=== PATIENT | male | born 1945 | race Caucasian/White ===

== ENCOUNTER 2019-03-20 13:09 | Outpatient (CLI) | payer MEDICARE, OTHER ==
--- NOTE | 2019-03-22 00:13 | CT Report ---
Reason: TIA Procedure Date: 03/20/2019 Accession Number: [id number] / [id number] Procedure: CT - HEAD WO CPT Code: FULL RESULT: EXAM: CT HEAD EXAM DATE: 03/20/2019 02:17 PM. CLINICAL HISTORY: Transient ischemic attack COMPARISON: HEAD 07/16/2006 7:20 PM. TECHNIQUE: Multiaxial CT images were obtained from the foramen magnum to the vertex. Reformats: Sagittal and coronal. IV contrast: None. In accordance with CT protocol optimization, one or more of the following dose reduction techniques were utilized for this exam: automated exposure control, adjustment of mA and/or KV based on patient size, or use of iterative reconstructive technique. FINDINGS: Parenchyma: Areas of encephalomalacia in the bilateral parieto-occipital lobes, left greater than right, compatible sequela of remote infarcts. New heterogeneous hyperattenuating right occipital mass measuring approximately 4.4 x 3.6 x 3.8 cm (01/24, 05/08). Interval progression of moderate patchy white matter hypoattenuation, compatible with chronic small vessel ischemic change. Extraaxial Spaces: Normal for age. No subdural or epidural collections identified. Ventricles: The ventricles and basal cisterns are patent. Mass-effect on the occipital horn of the right lateral ventricle. No hydrocephalus or midline shift. Sinuses and Orbits: Imaged paranasal sinuses, orbits, and mastoids show no significant abnormality. Bones: No evidence of fracture or calvarial defect. Other: None. IMPRESSION: 1. New heterogeneous hyperattenuating right occipital mass with mass-effect on the occipital horn of the right lateral ventricle. Recommend further evaluation with contrast-enhanced MRI. 2. Areas of encephalomalacia in the bilateral parieto-occipital lobes, left greater than right, compatible sequela of remote infarcts. 3. Interval progression of moderate chronic microvascular angiopathy. RADIA The critical result notification system was initiated by Dr. Susan Keita at 11:51 PM on 03/21/2019. The above critical result findings were discussed with Dr. Roman by Dr. Susan Keita at 12:02 AM on 03/22/2019.
--- NOTE | 2019-03-23 12:53 | Ultrasound Report ---
Reason: TIA Procedure Date: 03/20/2019 Accession Number: [id number] / [id number] Procedure: US - Carotid Doppler Complete CPT Code: FULL RESULT: EXAM: BILATERAL CAROTID AND VERTEBRAL ARTERY DUPLEX DOPPLER ULTRASOUND: EXAM DATE: 03/20/2019 01:41 PM CLINICAL HISTORY: TIA 2 weeks ago with lingering symptoms. COMPARISON: None. TECHNIQUE: Grayscale imaging, color Doppler, and duplex spectral Doppler were used to evaluate the carotid and vertebral arteries bilaterally. Static images were obtained. FINDINGS: No significant plaque is identified in the right or left common or internal carotid arteries. Normal antegrade flow is present in bilateral vertebral arteries. VELOCITIES (cm/sec): Right CCA mid: PSV 60 cm/sec CCA dist: PSV 64 cm/sec ICA prox: PSV 45 cm/sec, EDV 15 cm/sec ICA mid: PSV 69 cm/sec, EDV 23 cm/sec ICA dist: PSV 69 cm/sec, EDV 22 cm/sec ECA: PSV 57 cm/sec Vert: PSV 29 cm/sec ICA/CCA: 1.1 Left CCA mid: PSV 64 cm/sec CCA dist: PSV 60 cm/sec ICA prox: PSV 31 cm/sec, EDV 9 cm/sec ICA mid: PSV 41 cm/sec, EDV 15 cm/sec ICA dist: PSV 52 cm/sec, EDV 20 cm/sec ECA: PSV 55 cm/sec Vert: PSV 28 cm/sec ICA/CCA: 0.9 ICA diameter stenosis: Right: <50% by velocity and <70% by NASCET criteria. Left: <50% by velocity and <70% by NASCET criteria. Other: Incidentally noted hypoechoic solid right thyroid nodule with lobular margins. IMPRESSION: 1. No significant bilateral carotid artery plaquing. 2. In the right carotid artery there are no elevated carotid artery velocities to suggest hemodynamically significant stenosis. 3. In the left carotid artery there are no elevated carotid artery velocities to suggest hemodynamically significant stenosis. 4. Normal antegrade flow is present in bilateral vertebral arteries. 5. Incidentally noted right thyroid nodule. Recommend further evaluation with thyroid ultrasound. General Recommendations: Stenosis =50% ICA - Follow-up ultrasound 6-12 months Stenosis <50% ICA - High Risk Patient with plaque - Follow-up ultrasound 1-2 years Normal Study but High Risk Patient - Follow-up ultrasound 3-5 years Management recommendations and diagnostic criteria are based on current IAC endorsed standards in Carotid Artery Stenosis: Grayscale and Doppler Ultrasound Diagnosis. Validated velocity measurements with angiographic measurements and velocity criteria are extrapolated from diameter data as defined by the Society of Radiologists in Ultrasound Consensus Conference Radiology 2003; 229;340-346. RADIA
== END 2019-03-20 13:10 | disposition home or self-care (01) ==
LOC: DI 13:09
PROVIDERS: ATTEND Internal Medicine
DX: G45.9 Transient cerebral ischemic attack, unspecified (principal); R93.89 Abnormal findings on diagnostic imaging of other specified body structures; G93.89 Other specified disorders of brain; I67.9 Cerebrovascular disease, unspecified
CPT/HCPCS: 70450; 93880

== ENCOUNTER 2019-03-27 15:41 | Outpatient (CLI) | payer MEDICARE, OTHER ==
[2019-03-27] MEDS ORDERED: GADOBUTROL 7.5 MMOL/7.5 ML VIAL ONE (16:32)
[2019-03-27] MEDS ORDERED: GADOBUTROL 7.5 MMOL/7.5 ML VIAL IVP ONE (16:35)
--- NOTE | 2019-03-27 17:38 | MRI Report ---
Reason: CEREBRAL MASS Procedure Date: 03/27/2019 Accession Number: [id number] / [id number] Procedure: MRI - Brain W/WO CPT Code: FULL RESULT: EXAM: MRI BRAIN WITHOUT AND WITH CONTRAST EXAM DATE: 03/27/2019 04:45 PM. CLINICAL HISTORY: 73-year-old male. CEREBRAL MASS. COMPARISON: CT head 03/20/2019, MR brain 11/23/2005 TECHNIQUE: Multiplanar, multisequence T1-weighted and fluid-sensitive MR sequences of the brain were performed. Sequences optimized for routine evaluation. Other: None. IV Contrast: 7 ML Gadavist FINDINGS: Parenchyma: No evidence of acute or subacute infarct. As evidenced on the prior CT, there is a heterogeneous right occipital region mass adherent to the dura, with maximal transverse dimensions 4.6 x 4.0 cm and 4.0 cm craniocaudally. Intralesional foci of susceptibility artifact (series 701 image 12) may represent calcifications. The mass demonstrates restricted diffusion compatible with high cellularity. While not very well established, overall there are features suggestive of extra-axial location such as compression of the surrounding parenchyma and partial visualization of CSF cleft. Therefore, the mass may represent extra-axial lesion such as meningioma. There is moderate surrounding parenchymal FLAIR signal normality, which likely represents edema. Extensive, semi-confluent T2/FLAIR hyperintense periventricular, deep, and subcortical white matter lesions within cerebral hemispheres bilaterally. Bilateral parieto-occipital cystic encephalomalacia and surrounding gliosis, sequela of remote infarction. Ventricles/Cisterns: Stable size and configuration of the ventricles. Orbits: Symmetric and unremarkable. Sella Turcica: The pituitary gland, cavernous sinuses, suprasellar cistern and optic chiasm are unremarkable. IAC: Symmetric and unremarkable. Vasculature: Normal signal flow void is seen in the major arterial structures at the skull base. The dural sinuses are patent and enhance normally. Sinuses: No acute sinus disease. Bones: No focal pathologic appearing marrow signal changes. Other: None. IMPRESSION: 1. As evidenced on the prior CT, there is a heterogeneous right occipital region mass that appears adherent to the dura, with maximal transverse dimensions 4.6 x 4.0 cm and 4.0 cm craniocaudally. While not very well established, overall there are features suggestive of extra-axial location such as compression of the surrounding parenchyma and partial visualization of CSF cleft. Therefore, the mass is favored to represent extra-axial lesion such as meningioma. 2. Moderate surrounding parenchymal FLAIR signal normality, which likely represents edema. 3. Extensive, semi-confluent T2/FLAIR hyperintense periventricular, deep, and subcortical white matter lesions within cerebral hemispheres bilaterally. While nonspecific, these are favored to represent sequela of chronic microangiopathy. 4. Bilateral parieto-occipital cystic encephalomalacia and surrounding gliosis, sequela of remote infarction. 5. No evidence of acute or subacute infarct. No acute intracranial hemorrhage. RADIA
== END 2019-03-27 15:42 | disposition home or self-care (01) ==
LOC: DI 15:41
PROVIDERS: ATTEND Family Medicine
DX: R90.0 Intracranial space-occupying lesion found on diagnostic imaging of central nervous system (principal)
CPT/HCPCS: 70553; A9585

== ENCOUNTER 2019-03-28 12:40 | Outpatient (CLI) | payer MEDICARE, OTHER ==
--- NOTE | 2019-03-28 14:07 | Ultrasound Report ---
Reason: THYROID NODULE Procedure Date: 03/28/2019 Accession Number: [id number] / [id number] Procedure: US - Head or Neck Soft Tissue CPT Code: FULL RESULT: EXAM: THYROID ULTRASOUND EXAM DATE: 03/28/2019 12:56 PM. CLINICAL HISTORY: THYROID NODULE. COMPARISON: None. TECHNIQUE: Real time sonographic imaging of the thyroid was performed by the substation designer. Multiple client services representative static images were saved for review. FINDINGS: THYROID GLAND: Right Lobe: 5.4 x 1.8 x 2.5 cm, volume 12.7 cc. Normal background echotexture. Right Lobe Nodules: A mildly lobulated solid-appearing iso-to hypoechoic lesion with minimal vascularity and central echogenic tissue seen in the right thyroid lobe, measuring 1.3 x 0.7 x 1 cm. Nodule is taller than wider. Left Lobe: 4.6 x 1.6 x 1.2 cm, volume 4.6 cc. Normal background echotexture. Left Lobe Nodules: None. Isthmus: 0.45 cm AP. Isthmic Nodules: None. LYMPH NODES: No adenopathy demonstrated in the central or lateral compartment. OTHER: None. IMPRESSION: Mildly lobulated solid-appearing iso-to hyperechoic lesion in right thyroid lobe. Overall nodule has intermediate suspicion pattern. Recommended further correlation with fine-needle aspiration. Management recommendations are based on 2015 [place] [employer] Management Guidelines for Adult Patients with Thyroid Nodules and Differentiated Thyroid Cancer. RADIA
== END 2019-03-28 12:41 | disposition home or self-care (01) ==
LOC: DI 12:40
PROVIDERS: ATTEND Internal Medicine
DX: E04.1 Nontoxic single thyroid nodule (principal)
CPT/HCPCS: 76536

== ENCOUNTER 2019-05-27 08:42 | Emergency (ER) | payer MEDICARE, OTHER ==
--- NOTE | 2019-05-27 08:58 | ED Physician Documentation ---
PD HPI FOCAL NEURO - Stated complaint Stated Complaint: WEAKNESS/UNABLE TO WALK - History obtained from History obtained from: Patient, Family - History of Present Illness Timing - onset: Yesterday (evening time, had onset of Decreased vision and feeling of loss of lateral vision garcia as well as significant ataxia and difficulty walking. His daughter also noticed him to have a nystagmus of both eyes. The symptoms were abrupt in onset and have continued overnight into today. 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 Subsequent to that he has had some general weakness. The tumor itself even before surgery had caused some visual field defect and blurred vision. However the patient states this is significantly worse since last evening. He has had some headache as well. There is no injury or fall reported.) Timing - duration: Hours (14) Timing - details: Abrupt onset, Still present Severity of deficit: Moderate Weakness: No: Face, Hand, Leg Numbness: No: Face, Hand, Leg Associated symptoms: Headache, Other (nystagmus and ataxia). No: Nausea / vomiting, Fall, Head injury Baseline status: positive: Walker. negative: Mildly confused Similar symptoms before: Has not had sx before (The symptoms are abruptly new for him. He has had some visual problems related to an surgery.) Recently seen: Surgery (He had brain surgery at the [facility] in end of March for presumed brain metastasis. He had a debulking surgery of that area. The daughter reports they did find other small lesions presumed metastatic and further work-up found a lung source. He has met with the oncologist at the [facility] through the . The patient is still deciding on chemotherapy and further treatments. They have another appointment next week.) Review of Systems Constitutional: denies: Fever, Myalgias Eyes: reports: Decreased vision. denies: Photophobia, Irritation Nose: denies: Rhinorrhea / runny nose, Congestion Throat: denies: Sore throat Cardiac: denies: Chest pain / pressure, Palpitations Respiratory: denies: Dyspnea, Cough GI: reports: Nausea. denies: Abdominal Pain, Vomiting, Diarrhea : denies: Dysuria, Frequency Skin: denies: Abrasion (s), Laceration (s) Musculoskeletal: reports: Neck pain, Extremity pain (pain to right shoulder since yesterday). denies: Back pain Neurologic: reports: Headache (posterior), Other (severe ataxia and unable to walk without assistance just since last evening.). 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 ) Endocrine/Autoimmune: None - Present Medications Home Medications: Ambulatory Orders Medication Instructions Recorded Confirmed Lisinopril [Prinivil] 0 mg PO 05/27/19 Rivaroxaban [Xarelto] 0 mg PO 05/27/19 Rosuvastatin Calcium [Crestor] 0 mg PO 05/27/19 - Allergies Allergies/Adverse Reactions: Allergies Allergy/AdvReac Type Severity Reaction Status Date / Time No Known Drug Allergies Allergy Verified 05/27/19 09:23 PD ED PE NORMAL - Vitals Vital signs reviewed: Yes - General General: Alert and oriented X 3, Well developed/nourished, Other (answers questions clearly. ) - HEENT HEENT: Atraumatic (Well-healing surgical scar on the right parietal area.), PERRL, EOMI (with nystagmus noted horizontally, even without head movement. ), Pharynx benign - Neck Neck: Supple, no meningeal sign, No adenopathy, No JVD - Cardiac Cardiac: RRR, No murmur - Respiratory Respiratory: Clear bilaterally - Abdomen Abdomen: Soft, Non tender - Male Male : Deferred - Rectal Rectal: Deferred - Back Back: No CVA TTP - Derm Derm: Normal color, Warm and dry - Extremities Extremities: No deformity, No tenderness to palpate, Normal ROM s pain, No edema, No calf tenderness / cord - Neuro Neuro: Alert and oriented X 3, No motor deficit, No sensory deficit, Normal speech NIHSS - Level of Consciousness Level of consciousness: (0) Alert, Keenly responsive LOC Questions: (0) Answers both Q's correct LOC Commands: (0) Performs both correctly - Gaze Best Gaze: (0) Normal - Visual Visual: (3) Bilateral Hemianopia - Facial Palsy Facial Palsy: (0) Normal, symmetrical movement - Motor Arms (both separate) Motor Arm (right): (0) No drift Motor Arm (left): (0) No drift - Motor Legs (both separate) Motor Leg (right): (0) No drift Motor Leg (left): (0) No drift - Limb Ataxia Limb Ataxia: (2) Present in 2 limbs - Sensory Sensory: (0) Normal - Best Language Best Language: (0) No aphasia - Dysarthria Dysarthria: (0) Normal - Extinction and Inattention (formally neg Extinction and inattention: (0) No abnormality - Total Score/Results Total Score/Result: 5 Results - Vitals Vitals: Vital Signs - 24 hr 05/27/19 05/27/19 05/27/19 08:46 09:30 09:45 Temperature 36 C L Heart Rate 61 63 65 Respiratory 16 15 17 Rate Blood Pressure 135/82 H 128/87 H 144/82 H O2 Saturation 96 97 100 05/27/19 05/27/19 05/27/19 11:00 11:37 14:10 Temperature 36.7 C 36.7 C Heart Rate 55 L 53 L 56 L Respiratory 18 19 19 Rate Blood Pressure 130/69 122/72 134/79 H O2 Saturation 100 100 98 05/27/19 14:35 Temperature Heart Rate 53 L Respiratory 19 Rate Blood Pressure 136/74 H O2 Saturation 97 Oxygen O2 Source Room air - Labs Labs: Laboratory Tests 05/27/19 05/27/19 05/27/19 09:02 09:02 09:02 WBC 5.7 RBC 3.86 L Hgb 13.5 L Hct 40.0 L MCV 103.6 H MCH 35.0 H MCHC 33.8 RDW 12.2 Plt Count 235 MPV 10.1 Neut # (Auto) 3.8 Lymph # (Auto) 1.1 L Cameron # (Auto) 0.6 Eos # (Auto) 0.2 Baso # (Auto) 0.1 Absolute Nucleated RBC 0.00 Nucleated RBC % 0.0 ESR 15 PT INR APTT Sodium 142 Potassium 3.9 Chloride 107 Carbon Dioxide 24 Anion Gap 11.0 BUN 29 H Creatinine 1.0 Estimated GFR (MDRD) 73 L Glucose 106 H Calcium 8.9 Magnesium 2.7 Total Bilirubin 0.6 AST 24 ALT 13 Alkaline Phosphatase 82 Troponin I Total Protein 7.3 Albumin 3.5 Globulin 3.8 Albumin/Globulin Ratio 0.9 L Lipase 32 05/27/19 05/27/19 09:02 09:02 WBC RBC Hgb Hct MCV MCH MCHC RDW Plt Count MPV Neut # (Auto) Lymph # (Auto) Cameron # (Auto) Eos # (Auto) Baso # (Auto) Absolute Nucleated RBC Nucleated RBC % ESR PT 18.9 H INR 1.7 H APTT 30.1 Sodium Potassium Chloride Carbon Dioxide Anion Gap BUN Creatinine Estimated GFR (MDRD) Glucose Calcium Magnesium Total Bilirubin AST ALT Alkaline Phosphatase Troponin I < 0.04 Total Protein Albumin Globulin Albumin/Globulin Ratio Lipase - Rads (name of study) head CT/angio Radiology: Prelim report reviewed, Discussed with rads (acute hemorrhage left posterior fossa, in area of prior small lesions, most likely met. Prior surgical changes noted right occipital area. ), EMP read contemporaneously, See rad report PD MEDICAL DECISION MAKING - ED course Complexity details: considered differential, d/w patient, d/w family, d/w home sales consultant (Talked initially with the on-call neurosurgery at [facility]. They referred it to neurology and reportedly the case was discussed between neurosurgery neurology and oncology. The neurology attending accepted transfer the patient. He will go by airlift to the emergency room initially for rescanning to look for any interval change in the degree of bleeding. He was then be admitted to the neuro ICU.) ED course: Patient had spontaneous nontraumatic hemorrhage in the area of a brain metastasis in the posterior fossa. It is giving him considerable cerebellar symptoms but no notable brainstem dysfunction with good alertness and normal blood pressure and heart rate. He has normal spontaneous breathing as well. He is on Xarelto blood thinner. He was given tranexamic acid IV as well as some IV pain medications. He is also given Kcentra on a weight-based appropriate dose. The patient remained stable clinically here. I did talk with the neurosurgery and the neurology. He is accepted for transfer there and he is tra nsferred in stable condition. Departure - Departure Disposition: 02 Transfer Acute Care Hosp Clinical Impression: Intracranial hemorrhage, Brain metastases, Ataxia Condition: Serious Discharge Date/Time: 05/27/19 14:36
[2019-05-27] MEDS ORDERED: SODIUM CHLORIDE 0.9% 1,000 ML IV ONE ×2 (09:16→13:55)
[2019-05-27] MEDS ORDERED: diazePAM INJ 5 MG/ML SYRINGE IVP STA (09:17)
[2019-05-27] MEDS ORDERED: DEXAMETHASONE 10 MG/ML VIAL IVP STA (09:17)
[2019-05-27] MEDS ORDERED: MORPHINE 2 MG/ML CARPUJECT IVP STA (09:29)
[2019-05-27 09:30] LABS: BASOPHILS # (AUTO) 0.1 10^3/uL (0.0-0.1); BASOPHILS % (AUTO) 0.9 %; EOSINOPHILS # (AUTO) 0.2 10^3/uL (0.0-0.7); EOSINOPHILS % (AUTO) 2.8 %; HGB - HEMOGLOBIN 13.5 g/dL (14.0-18.0); LYMPHOCYTES # (AUTO) 1.1 10^3/uL (1.5-3.5); LYMPHOCYTES % (AUTO) 19.1 %; MEAN CORPUSCULAR HGB CONC 33.8 g/dL (32.0-36.0); MEAN CORPUSCULAR VOLUME 103.6 fL (80.0-94.0); MEAN PLATELET VOLUME 10.1 fL (7.4-11.4); MONOCYTES # (AUTO) 0.6 10^3/uL (0.0-1.0); MONOCYTES % (AUTO) 10.5 %; NEUTROPHILS # (AUTO) 3.8 10^3/uL (1.5-6.6); NEUTROPHILS % (AUTO) 66.3 %; PLT - PLATELET COUNT 235 10^3/uL (130-450); RED BLOOD COUNT 3.86 10^6/uL (4.70-6.10); RED CELL DISTRIBUTION WIDTH 12.2 % (12.0-15.0); WHITE BLOOD COUNT 5.7 x10^3/uL (4.8-10.8)
[2019-05-27] MEDS ORDERED: IOVERSOL 320 100 ML VIAL IVP ONE ×2 (09:46→14:50)
[2019-05-27 09:53] LABS: ALBUMIN 3.5 g/dL (3.2-5.5); ALBUMIN/GLOBULIN RATIO 0.9 (1.0-2.2); BILIRUBIN,TOTAL 0.6 mg/dL (0.2-1.0); CALCIUM 8.9 mg/dL (8.5-10.3); MAGNESIUM 2.7 mg/dL (1.7-2.8); TOTAL PROTEIN 7.3 g/dL (6.7-8.2)
--- NOTE | 2019-05-27 11:11 | CT Report ---
Reason: L sided facial droop Procedure Date: 05/27/2019 Accession Number: [id number] / [id number] Procedure: CT - ANGIO HEAD W/WO CPT Code: FULL RESULT: EXAM: CT ANGIOGRAM HEAD. CT SCAN OF THE HEAD WITHOUT AND WITH CONTRAST. EXAM DATE: 05/27/2019 10:35 AM CLINICAL HISTORY: Acute onset left-sided facial droop COMPARISON: HEAD W/O 03/20/2019 2:14 PM BRAIN W/WO 03/27/2019 4:16 PM. TECHNIQUE: - CT Scan Head: Using a multidetector scanner, axial images were acquired from the foramen magnum to the skull vertex prior to and following contrast administration. - CT Angiogram: Using a multidetector scanner, high-resolution axial images were acquired from the skull base through vertex following rapid infusion of intravenous contrast. Reformats: Multiplanar MIP reformats were reconstructed. Nascet criteria used for stenosis measurement. IV Contrast: OPTI 320 80ML. In accordance with CT protocol optimization, one or more of the following dose reduction techniques were utilized for this exam: automated exposure control, adjustment of mA and/or KV based on patient size, or use of iterative reconstructive technique. FINDINGS: Non Contrast Head: There is an ovoid acute intraparenchymal hemorrhage in the anteromedial left cerebellum measures 2.9 x 1.7 x 2.1 cm with mild surrounding edema, without significant mass-effect. There is no evidence for hydrocephalus. There was focus of enhancing intra-axial lesion in this location on MRI brain 03/27/2019 and therefore hemorrhagic metastasis is the primary differential consideration. Redemonstrated is large encephalomalacia involving the lateral left occipital lobe, left parietal lobe compatible with remote left MCA distribution infarction. Interval removal of right occipital mass lesion through a right parieto-occipital craniotomy with encephalomalacia in the right occipital lobe as expected. Compared to 03/20/2019 new mixed, mostly hypodense subdural collection over the right parieto-occipital convexity measuring up to 16 mm, without significant midline shift. Le-white matter differentiation appears preserved. Post contrast CT Head: Enlarging intra-axial enhancing mass lesion in the right lateral cerebellum measures 15 x 12 mm (previously 3 mm). New subtle enhancement in the inferior right cerebellum measures 13 mm (image 5 series 9), suspicious for metastasis. Enlarging 9 mm focus of enhancement in the posterior right cerebellum (image 8 series 9). 6 mm focus of enhancement in the inferior right putamen (17: 9) suspicious for new metastasis. Ill-defined enhancement in the inferior right frontal lobe (21: 9) measures 11 mm, suspicious for new metastasis. Image 27 series 9, 2 mm focus of enhancement in the left middle frontal gyrus, suspicious for new metastasis. Image 16 series 9, 11 mm of enhancement along the anterior lateral aspect of the right temporal occipital resection cavity, suspicious for metastasis. Le white matter differentiation appear preserved. Dural venous sinus and deep cerebral veins appear normal. CTA HEAD: Anterior Circulation: The internal carotid arteries (ICA), middle cerebral arteries (MCA), and anterior cerebral arteries (LUIS) are patent bilaterally. The anterior communicating artery (A-COM) appears patent. No aneurysms, stenoses, or anatomic anomalies evident. Posterior Circulation: The superior vertebral artery, basilar, and posterior cerebral arteries (GARAGEMAN) are patent. No aneurysms, stenoses, or anomalies evident. The posterior communicating arteries (P-COM) are patent on the left, hypoplastic on the right. IMPRESSION: CT Head: 1. Multilobulated ovoid acute intraparenchymal hemorrhage in the anterior inferior left cerebellum measures 2.9 x 1.7 x 2.1 cm without intraventricular extension. Given the presence of previous intra-axial enhancing lesion in this location, etiology most likely is hemorrhagic metastasis. ICH Volume Estimate: 5.4 cc. Intraventricular Hemorrhage: No. Infratentorial Origin of Hemorrhage: Yes. 2. Multifocal enlarging supratentorial and infratentorial intra-axial mass lesions, compatible with metastases. 3. Interval right parieto-occipital craniotomy and resection of right occipital mass. Minimal extradural collection overlying the resection site most likely postoperative. 4. 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 5. Chronic encephalomalacia in the left parietal lobe, compatible with remote left MCA distribution infarct. CTA Head: No significant intracranial arterial stenosis. No evidence for aneurysm. Mild atherosclerotic calcifications. RADIA The critical result notification system was initiated by Dr. Steven Alejandro at 10:54 AM on 05/27/2019. The above critical result findings were discussed with Carlos Diaz by Dr. Steven Alejandro at 10:58 AM on 05/27/2019.
--- NOTE | 2019-05-27 11:15 | CT Report ---
Reason: L sided facial droop, L neck pain Procedure Date: 05/27/2019 Accession Number: [id number] / [id number] Procedure: CT - ANGIO NECK W CPT Code: FULL RESULT: EXAM: CT ANGIOGRAM NECK EXAM DATE: 05/27/2019 10:35 AM. CLINICAL HISTORY: L sided facial droop, L neck pain. COMPARISON: HEAD W/O 03/20/2019 2:14 PM. TECHNIQUE: Routine axial helical imaging was performed from the skull base through the aortic arch. Reconstructions: Routine multiplanar 3D MIP reconstructions. IV Contrast: OPTI 320 80ML. Evaluation of arterial stenosis is based on a NASCET method of measurement. In accordance with CT protocol optimization, one or more of the following dose reduction techniques were utilized for this exam: automated exposure control, adjustment of mA and/or KV based on patient size, or use of iterative reconstructive technique. FINDINGS: Right Carotid: The common carotid, internal carotid, and external carotid arteries are widely patent. No dissection, significant atherosclerotic plaque, or calcification identified. Left Carotid: The common carotid, internal carotid, and external carotid arteries are widely patent. No dissection, significant atherosclerotic plaque, or calcification identified. Vertebrals: The vertebrobasilar system shows no stenoses. 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 Intracranial Circulation: Normal. No stenoses or aneurysms of the visualized vessels. Other: Incidental right thyroid nodule measures 1.8 x 1.3 cm. Bronchiectasis of the upper lungs, with paraseptal emphysematous changes and apical scarring. Multilevel degenerative changes of the cervical spine. IMPRESSION: No significant cervical carotid or vertebral artery stenosis. No evidence to suggest dissection. [facility]
[2019-05-27] MEDS ORDERED: TRANEXAMIC ACID 1,000 MG in SODIUM CHLORIDE 0.9% 100ML 100 ML IV STA ×2 (11:19→13:09)
[2019-05-27 11:34] LABS: INR 1.7 (0.8-1.2); PT - PROTHROMBIN TIME 18.9 secs (9.9-12.6)
[2019-05-27 11:41] LABS: PARTIAL THROMBOPLASTIN TIME 30.1 secs (24.9-33.3)
[2019-05-27] MEDS ORDERED: PROTHROMBIN COMPLEX CONC 500 UNIT VIAL IVP STA (12:08)
[2019-05-27 14:36] VITALS: BP 136/74
== END 2019-05-27 14:36 | disposition short-term general hospital (02) ==
LOC: ED 08:42
DX: I62.9 Nontraumatic intracranial hemorrhage, unspecified (principal); R27.0 Ataxia, unspecified; C34.90 Malignant neoplasm of unspecified part of unspecified bronchus or lung; C79.31 Secondary malignant neoplasm of brain; Z98.890 Other specified postprocedural states
CPT/HCPCS: 36415; 70496; 70498; 80053; 83690; 83735; 84484; 85025; 85610; 85651; 85730; 93005; 96361; 96365; 96375; 99284; 99285; C9132; Q9967